=== PATIENT | male | born 1990 | race Caucasian/White ===

== ENCOUNTER 2019-11-07 09:43 | Emergency (ER) | payer OTHER, MEDICAID ==
[~2019-11-07] VITALS: Ht 172.7 cm; Wt 65.8 kg
[~2019-11-07 09:43] MED LIST: FLEXERIL PO; ULTRAM 50MG TAB50 MG PO
[2019-11-07 10:00] VITALS: BP 145/77
== END 2019-11-07 10:44 | disposition home or self-care (01) ==
LOC: M.ERS 09:43
DX: S43.51XA Sprain of right acromioclavicular joint, initial encounter (principal); X50.0XXA Overexertion from strenuous movement or load, initial encounter; Y93.89 Activity, other specified; Y92.89 Other specified places as the place of occurrence of the external cause; Y99.8 Other external cause status